=== PATIENT | female | born 1935 | race Caucasian/White ===

== ENCOUNTER 2019-01-24 10:36 | Inpatient (IN) | payer OTHER, BC ==
--- NOTE | 2019-01-24 11:10 | EDPHY ---
HPI/HX/ROS/PE/MDM Narrative: CHIEF COMPLAINT:"My hip hurts like heck" HPI: This patient is an 83 year old female with history of stage IV melanoma. She woke yesterday in the middle of the night with severe right hip pain. This persisted throughout the day and continues this morning. She is unable to walk or perform other usual activities such as putting on socks. She is generally quite active and hikes with her daughter. She denies any recent falls or other injuries. She denies any back discomfort. She describes severe right hip pain which occasionally radiates posteriorly. She has taken Ibuprofen without relief. She endorses history of a small fracture in the right hip after falling off a curb several years ago, but she did not undergo any surgical treatment for this and has felt well. She has no further complaints today. REVIEW OF SYSTEMS: A comprehensive 10 system review of systems is otherwise negative aside from elements mentioned in the history of present illness and medical decision making. PMH: History of melanoma stage IV, last PET scan 3 years ago. Has been taking oral steroids for the past two years. History of bilateral total knee arthroscopy. SOCIAL HISTORY: Daughter at bedside. PHYSICAL EXAM: General:Patient is alert, in no acute distress. ENT:Eyes are normal to inspection. ENT inspection normal. Neck: Normal inspection. Full range of motion. Respiratory:No respiratory distress. Breath sounds normal bilaterally. Cardiovascular: Regular rate and rhythm. Strong peripheral pulses. Normal cap refill. Abdomen:The abdomen is nontender to palpation. There are no peritoneal signs. There are normal bowel sounds. Back: Normal to inspection. No tenderness to palpation. Skin: Normal color. No rash. Warm and dry. Extremities: Right hip/leg: No tenderness. No pain with axial loading or internal or external rotation. She has considerable pain when she attempts to lift her leg herself. Otherwise normal appearance of other extremities with full range of motion. Neuro: Oriented x3. Normal motor function. Normal sensory function. ED Course: 83 y/o female presents with atraumatic right hip pain. The patient has no pain with axial loading or passive internal or external rotation, however she has considerable pain when she attempts to lift her leg herself. Plan for x-ray right hip. Plan to consult with orthopedics. Plan to administer one tab PO Percocet for pain relief. 12:[address] Youssef, flight communications specialist. Patient has an acute impacted right femoral neck fracture. He plans to take her for surgery this evening. Patient just ate potato chips, so we will admit for perioperative management. Patient to be NPO from this point. 12:18 Spoke with hospitalist service. Dr. Cardoso accepts admission for perioperative management of right hip fracture. - Data Points Imaging Results: Imaging Impressions Hip X-Ray 01/24/19 10:51 Impression: 1. There is no acute osseous abnormality identified. 2. Multilevel degenerative change of the lower lumbar spine. If there is further clinical concern regarding the patient's right hip pain, CT or MR imaging could be considered. Imaging: I viewed and interpreted images myself Medications Given: Hydromorphone HCl (Dilaudid) 0.2 - 0.4 mg IVP Q4HRS PRN PRN Reason: Pain, Severe Unable to Take PO Stop: 02/03/19 14:09 Last Admin: 01/24/19 14:45 Dose: 0.2 mg Sodium Chloride (Ns) 1,000 mls @ 100 mls/hr IV CONT LILIANA Stop: 01/26/19 00:14 Last Admin: 01/24/19 14:30 Dose: 1,000 mls Discontinued Medications Oxycodone/Acetaminophen (Percocet 5/325) 1 tab PO EDNOW ONE Stop: 01/24/19 11:17 Last Admin: 01/24/19 11:21 Dose: 1 tab General Time Seen by Provider: 01/24/19 10:46 Initial Vital Signs: Initial Vital Signs Temperature (C) 36.7 C 01/24/19 10:43 Heart Rate 68 01/24/19 10:43 Respiratory Rate 16 01/24/19 10:43 Blood Pressure 143/79 H 01/24/19 10:43 O2 Sat (%) 94 01/24/19 10:43 O2 Delivery Mode Room Air Allergies/Adverse Reactions: Sulfa (Sulfonamide Antibiotics) Allergy (Verified 01/24/19 12:45) Home Medications: Medication Instructions Recorded Dexamethasone [DEXAMETHASONE] 0.5 mg PO Q2D 01/24/19 Lipase 24,000/Amylase/Protease 2 cap PO TIDMEAL 01/24/19 [Creon 24 (*)] Departure - Departure Disposition: [facility] Clinical Impression: Closed right hip fracture Condition: Fair Report Scribed for: Joao Gallegos Report Scribed by: Lesly Willis Date of Report: 01/24/19 Time of Report: 11:09 Physician Review and Approval Statement: Portions of this note were transcribed by an ED scribe. I personally performed the history, physical exam, and medical decision making; and confirm the accuracy of the information in the transcribed note.
[2019-01-24] MEDS ORDERED: OXYCODONE/APAP 5/325 TAB PO ONE (11:16)
[2019-01-24 12:43] LABS: PLATELET COUNT 218 10^3/uL (150-400)
--- NOTE | 2019-01-24 12:58 | GCON ---
[f rep st] CONSULTATION EMERGENCY DEPARTMENT CONSULTATION DATE OF CONSULTATION: 01/24/2019 CHIEF COMPLAINT: Right hip pain. HISTORY OF PRESENT ILLNESS: The patient is an 83-year-old woman who had the onset of hip pain yester day evening. She presents today with persistent pain and discomfort across the right hip with any at tempted weightbearing and range of motion. She denies any falls or severe injury. She has a history of stage IV melanoma. She also has a history of bilateral knee replacement. PAST MEDICAL HISTORY: Arthritis, stage IV melanoma, and oral steroid use. SURGICAL HISTORY: Bilateral knee replacements. MEDICATIONS: Creon and dexamethasone on a daily dosage. ALLERGIES: Sulfa. SOCIAL HISTORY: She is here with her daughter. She lives in [place]. Denies any tobacco or alco hol use. REVIEW OF SYSTEMS: Negative for current chest pain, shortness of breath, belly pain, back pain, numb ness, tingling, or other joint related complaints. OBJECTIVE: This is a healthy woman in no acute distress. CURRENT VITAL SIGNS: Blood pressure is 14 3/79, pulse is 68, respiratory rate is 16, 94% on room air. Temperature is 36.7. HEENT: Normocepha lic, atraumatic. EXTREMITIES: Bilateral upper extremities are unremarkable. Bilateral lower extrem ities reveal well-healed surgical incisions. Neutral in alignment. Her leg lengths are equal. She has pain over the right inguinal area with active flexion of her right hip. With the leg in extensio n, she is tender across the right inguinal crease. No tenderness over the greater trochanter. There is no focal crepitus with internal or external rotation. Sensation is intact to light touch across both lower extremities. RADIOGRAPHS: AP pelvis and lateral demonstrate a valgus impacted femoral neck fracture. There is no lucency or metastatic process evident. She has diffuse lumbar spinal stenosis and degenerative neil ges and osteoporosis. IMPRESSION: Valgus impacted right femoral neck fracture. TREATMENT PLAN: I have recommended surgical stabilization with percutaneous screw placement given th e valgus impaction and minimal leg length discrepancy. I have outlined the surgical procedure, risks , benefits, alternatives, and she wishes to proceed. Appropriate consent will be signed and placed i n the patient's chart. Unfortunately, the patient just ate so she will have an 8 hour delay prior to surgical intervention. She will be admitted to the hospitalist service. /[id number]/MODL
[2019-01-24] MEDS ORDERED: ONDANSETRON 4 MG/2 ML VIAL IVP PRN (14:10)
[2019-01-24] MEDS ORDERED: ACETAMINOPHEN 325 MG TAB PO PRN (14:10)
[2019-01-24] MEDS ORDERED: ONDANSETRON DISINTEGRATING 4 MG TAB PO PRN (14:10)
[2019-01-24] MEDS ORDERED: HYDROmorphONE/DILAUDID 1 MG/ML INJ IVP PRN (14:10)
[2019-01-24] MEDS: NS 1,000 ML IV SCH (14:30)
--- NOTE | 2019-01-24 15:00 | GHP ---
[f rep st] HISTORY AND PHYSICAL DATE OF ADMISSION: 01/24/2019 CHIEF COMPLAINT: Right hip pain. HISTORY OF PRESENT ILLNESS: The patient is an 83-year-old woman with a history of stage IV melanoma cancer and has no other significant history. She presented to the emergency room after having increased right-sided hip pain. Yesterday, she said she felt pain in the hip but was able to ambulate. Then today the pain became significant, and it wrapped around causing severe pain. In regard to her stage IV melanoma cancer, she was treated with Opdivo. She has been cancer-free for the past 2 years. She recently had a PET scan 3 months ago which showed that it was also stable. She is from the [place] area. She is here visiting her daughter who lives in [place]. The patient is on chronic dexamethasone because she sustained adrenal gland issues after getting treated with Opdivo. She has tried to wean herself off it, but gets tired, and has difficulty without it. During my interview, she has no chest pain. No shortness of breath. No changes in her vision. No changes in her appetite. She denies any constipation or any problems with urination. Overall , she is feeling fine except having some pain in the right hip area. PAST MEDICAL HISTORY: 1. Stage IV melanoma cancer in the past. She was treated with Opdivo. She was treated at [facility] in the [facility]. 2. Bilateral knee replacements. 3. History of some sciatica. ALLERGIES: Sulfa causes a rash. HOME MEDICATIONS: Creon 2 caps p.o. three times daily with meals, dexamethasone 0.5 mg every 2 days. SOCIAL HISTORY: She is from [place]. She is . Her 2 years ago from complications of Parkinson's. She has 2 daughters. She does not smoke. She rarely has a drink. She worked as a teacher. FAMILY HISTORY: Her mother of complications from cirrhosis at age 66. Her father of complications of pneumonia and arthritis at age 52. REVIEW OF SYSTEMS: A 10-point review of systems was performed and was negative other than the pertinent positives in the HPI and past medical history. PHYSICAL EXAMINATION: GENERAL: The patient is an 83-year-old woman who appears younger than her stated years. VITAL SIGNS: Blood pressure is 171/100 , heart rate is 65, respiratory rate 16, O2 saturation on room air 93%, temperature is 36.9 Celsius. HEENT: Eyes, pupils are equal and reactive. EOMs are intact. No conjunctival injection noted. ENT, normal ears. Hearing intact. Oral airway is moist. NECK: Trachea is midline. CARDIOVASCULAR: She is in regular rate and rhythm. No murmurs, rubs, or gallops noted. CHEST: Lungs normal respiratory effort. Clear without wheezing, rales, rhonchi. ABDOMEN: Soft, nontender. SKIN: No rashes or ulcers. Warm, dry, intact. She has some light bruised area on her shins. She attributes this to the steroid use. MUSCULOSKELETAL: Her legs are equal in length. No rotation is noted. She has pain over the right inguinal area. Sensation is intact. PSYCHIATRIC: She is alert and oriented. Normal mood, affect. Normal judgment , insight and normal memory. LABORATORY DATA: A CBC was performed which shows a white blood cell count of 8.52, hemoglobin of 13.8, hematocrit of 39.1, platelet of 218. Chemistry shows a sodium of 137, potassium 4, chloride of 107, CO2 24, BUN 11, creatinine 0.5, glucose of 114, calcium 9.4, bilirubin 0.9, AST 19, ALT 30, alkaline phosphatase 74. Hip x-ray shows no acute osseous abnormality identified. It shows multilevel degenerative changes of the lower spine. ASSESSMENT/PLAN: 1. Valgus impacted right femoral neck fracture. She will get stabilization with percutaneous screw placement this evening. She has been seen and evaluated by Dr. Youssef. Will continue n.p.o. status and give her IV hydration. Will check a Vitamin D level. 2. History of stage IV melanoma cancer that was treated with Opdivo. I suspect that she likely fractured her hip being on dexamethasone. Have recommended she talk to her oncologist in the [place] area to see if they can decrease this dosing. 3. Adrenal insufficiency. It will be important that she takes her dexamethasone tomorrow. This is temporarily placed on hold. She takes it every other day. 4. Hypertension. She does not have a history of this. I suspect it is secondary to pain and also anxious for the surgery. Will continue to monitor and see if she needs treatment for this. 5. Deep venous thrombosis prophylaxis. High risk. Will place her on low- molecular weight heparin tomorrow as well as SCDs. 6. Code status. Do not resuscitate. 7. Length of stay: She will require greater than a 2-midnight stay for treatment of her hip fracture. /[id number]/MODL MTDD
[2019-01-24] MEDS: LIPASE 24,000/AMYLASE/PROTEASE (CREON) 1 CAP PO SCH (17:59)
[2019-01-24] MEDS ORDERED: ceFAZolin 2 GM/DEXTROSE 100 ML IV ONE (19:00)
[2019-01-24] MEDS ORDERED: BUPIVACAINE/EPI 0.5% 30 ML SDV ONE (19:38)
[2019-01-24] MEDS ORDERED: POLYMYXIN B SULFATE 500,000 UNIT/10 ML SYR IRR ONE (19:38)
[2019-01-24] MEDS ORDERED: PROPOFOL/EMULSION 500 MG/50 ML BOTTLE IV ONE (19:59)
[2019-01-24] MEDS ORDERED: fentaNYL 100 MCG/2 ML INJ ONE ×2 (20:02→21:28)
--- NOTE | 2019-01-24 20:05 | PDANEPAE ---
ANE History of Present Illness here for hip pinning ANE Past Medical History - Cardiovascular History Hx Hypertension: No Hx Arrhythmias: No Hx Chest Pain: No Hx Coronary Artery / Peripheral Vascular Disease: No Hx CHF / Valvular Disease: No Hx Palpitations: No - Pulmonary History Hx COPD: No Hx Asthma/Reactive Airway Disease: No Hx Recent Upper Respiratory Infection: No Hx Oxygen in Use at Home: No Hx Sleep Apnea: No Sleep Apnea Screening Result - Last Documented: Negative - Endocrine History Hx Diabetes: No Hypothyroid: No Hyperthyroid: No Obesity: no - Renal History Hx Renal Disorders: No - Liver History Hx Hepatic Disorders: No - Cancer History Hx Cancer: Yes Cancer History Comment: history of melanoma - Chronic Pain History Chronic Pain: No ANE Review of Systems Review of systems is: negative Review of Systems: - Exercise capacity Exercise capacity: >=4 METS ANE Patient History - Allergies Allergies/Adverse Reactions: Sulfa (Sulfonamide Antibiotics) Allergy (Verified 01/24/19 12:45) - Home Medications Home medications: home medication list seen and reviewed Home Medications: Dexamethasone [DEXAMETHASONE] 0.5 mg PO Q2D 01/24/19 [Last Taken 01/23/19 09:00] Lipase 24,000/Amylase/Protease [Creon 24 (*)] 2 cap PO TIDMEAL 01/24/19 [Last Taken Unknown] - NPO status NPO Status: no food or drink >8 hours NPO Since - Liquids (Date): 01/24/19 NPO Since - Liquids (Time): 11:00 NPO Since - Solids (Date): 01/24/19 NPO Since - Solids (Time): 11:00 - Anes Hx Anes Hx: no prior problems - Smoking Hx Smoking Status: Never smoked ANE Labs/Vital Signs - Labs Result Diagrams: 01/24/19 12:30 01/24/19 12:30 - Vital Signs Vital Signs: reviewed preoperatively; see RN documention for details Blood Pressure: 151/86 Heart Rate: 71 Respiratory Rate: 16 O2 Sat (%): 93 Height: 154.94 cm Weight: 54.431 kg ANE Physical Exam - Airway Neck exam: FROM Mallampati Score: Class 1 Mouth exam: normal dental/mouth exam - Pulmonary Pulmonary: no respiratory distress - Cardiovascular Cardiovascular: regular rate and rhythym - ASA Status ASA Status: II ANE Anesthesia Plan Anesthesia Plan: GA w LMA
[2019-01-24] MEDS ORDERED: ONDANSETRON 4 MG/2 ML VIAL ONE (20:18)
[2019-01-24] MEDS ORDERED: DEXAMETHASONE 4 MG/ML VIAL ONE (20:18)
[2019-01-24] MEDS ORDERED: NALOXONE HCL 0.4 MG/ML INJ IVP PRN (20:43)
[2019-01-24] MEDS ORDERED: DEXAMETHASONE 4 MG/ML VIAL IVP PRN (20:43)
[2019-01-24] MEDS ORDERED: fentaNYL 100 MCG/2 ML INJ IVP PRN (20:43)
[2019-01-24] MEDS ORDERED: ALBUTEROL 3 ML DEYVIAL IH PRN (20:43)
[2019-01-24] MEDS ORDERED: NS 500 ML IV PRN (20:43)
--- NOTE | 2019-01-24 20:51 | POSTOPPROG ---
Post Op Note Date of Operation: 01/24/19 Surgeon: Francisco Youssef Traveling Phlebotomist: none Anesthesiologist: margot Anesthesia: GET(General Endotracheal) Pre-op Diagnosis: right fem neck fx Post-op Diagnosis: same Indication: same Procedure: crpp right fem neck fx Inf/Abcess present in the surg proc area at time of surgery?: No Depth: Superfical (Skin SQ) EBL: Minimal
--- NOTE | 2019-01-24 20:52 | PDIAF ---
- Diagnosis Diagnosis: right femoral neck fx Code Status: Full Code - Medication Management Discharge Medications: electronically signed and located in the Home Medication List. - Orders Services needed: Physical Therapy Additional Instructions: tdwb rom as hardy keep dressing intact no soaking or immersion f/u at two weeks seek attn for increasing pain, swelling or symptoms - Follow Up Care Current Providers and Referrals: NONE *PRIMARY CARE P,. [Primary Care Provider] - As per Instructions Francisco Youssef MD [Medical Doctor] -
--- NOTE | 2019-01-24 21:06 | POSTANESTH ---
Post Anesthetic Evaluation Cardiovascular Status: Normal, Stable Respiratory Status: Normal, Stable Level of Consciousness/Mental Status: Can Participate in Eval Pain Control: Adequate, Prn Tx Ordered Nausea/Vomiting Control: Adequate, Prn Tx Ordered Complications Possibly Related to Anesthesia: None Noted
[2019-01-25] MEDS: NS 1,000 ML IV SCH (00:58)
[2019-01-25] MEDS: ceFAZolin 2 GM/DEXTROSE 100 ML IV SCH ×3 (03:46→21:09)
[2019-01-25] MEDS: oxyCODONE IR 5 MG TAB PO PRN ×3 (03:49→11:40)
[2019-01-25 05:02] LABS: PLATELET COUNT 211 10^3/uL (150-400)
--- NOTE | 2019-01-25 07:08 | SOAPPROG ---
SOAP Progress Note Assessment/Plan: Assessment: s/p crpp right femoral neck fx Plan: mobilize with pt/ot dvt precautions ice planning on snf 01/25/19 07:03 Subjective: sore with movement no cp or sob hardy po Objective: Vital Signs Temp Pulse Resp BP Pulse Ox 36.7 C 71 18 134/78 H 96 01/25/19 05:00 01/25/19 05:00 01/25/19 05:00 01/25/19 05:00 01/25/19 05:00 Laboratory Results 01/25/19 04:46 01/25/19 04:46 01/24/19 01/25/19 01/26/19 05:59 05:59 05:59 Intake Total 25825 Output Total 700 150 Balance 32020 -150 dressing intact intact pdf,ehl toes warm and pink neg homans sobeida xrays stable alignment no collapse ICD10 Worksheet Patient Problems: Problems Problem Status Onset Closed right hip fracture Acute
[2019-01-25] MEDS: LIPASE 24,000/AMYLASE/PROTEASE (CREON) 1 CAP PO SCH ×3 (07:53→17:40)
[2019-01-25] MEDS: ENOXAPARIN 40 MG/0.4 ML SYR SC SCH (07:55)
[2019-01-25] MEDS: POLYETHYLENE GLYCOL 3350 17 GM PKT PO SCH (09:15)
--- NOTE | 2019-01-25 09:54 | PDMN ---
Medical Necessity Medical necessity: [facility] Musculoskeletal Surgery or Procedure: 83 yo w/ R hip pain, eval reveals hip fx - Valgus impacted R fem neck fx. Ortho consulted. Pt to OR now s/p closed reduction and percutaneous pin fixation. Pt will require>2MN for post op care w/ PT/OT, pain management, IV antibx. Admit IP status. Hx St IV melanoma on chronic steroids.
--- NOTE | 2019-01-25 11:38 | ASMTCMCOM ---
CM Note CM Note Notes: CM spoke with pt in the room. Pt admitted for hip fracture likely related to superintendent terminal steroid use. Pt had hip surgery yesterday. Pt is visiting dtr here in [place] and lives in [place]. Surgeon's note is requesting SNF placement and pt prefers [facility] for short term rehab. Referral sent to [facility] and they will submit auth to out of state PPO. CM to follow. D/C Plan: [facility] pending auth Date Signed: 01/25/2019 10:42 AM Electronically Signed By:Suzi Benson
[2019-01-25] MEDS: DEXAMETHASONE 0.5 MG TAB PO SCH (11:41)
--- NOTE | 2019-01-25 12:04 | HOSPPROG ---
Hospitalist Progress Note Assessment/Plan: 83 yo F w h/o metastatic melanoma here w R hip fracture; pod 1 hip fracture: s/p operative repair c/w fragility fracture no cruz on enox osteopenia: low normal vit d start po replacement dexamethasone dosing is subphysiologic so contribution to this fracture is uncertain needs endocrine/bone metabolism referral in [place] h/o melanoma: s/p immune therapy proph: enox pain: sceduled tylenol, low dose oxycodone dispo: will likely needs snf Subjective: case d/w dr parks. pain well controlled. hasnt been out of bed yet Objective: Vital Signs Temp Pulse Resp BP Pulse Ox 36.8 C 79 18 148/81 H 93 01/25/19 11:04 01/25/19 11:04 01/25/19 11:04 01/25/19 11:04 01/25/19 11:04 Laboratory Results 01/25/19 04:46 01/25/19 04:46 01/24/19 01/25/19 01/26/19 05:59 05:59 05:59 Intake Total 97767 Output Total 700 700 Balance 14973 -700 - Physical Exam Constitutional: no apparent distress, appears nourished Eyes: PERRL, anicteric sclera Ears, Nose, Mouth, Throat: moist mucous membranes, hearing normal Cardiovascular: regular rate and rhythym, no murmur, rub, or gallop Respiratory: no respiratory distress, no rales or rhonchi Gastrointestinal: normoactive bowel sounds, soft, non-tender abdomen Genitourinary: no bladder fullness, No cruz in urethra Skin: warm, normal color Musculoskeletal: No full muscle strength Neurologic: AAOx3 ICD10 Worksheet Patient Problems: Problems Problem Status Onset Closed right hip fracture Acute
[2019-01-25] MEDS: ACETAMINOPHEN 500 MG TAB PO SCH ×2 (14:29→21:08)
[2019-01-25] MEDS: CHOLECALCIFEROL VIT D3 2,000 UNITS TAB/CAP PO SCH (14:29)
--- NOTE | 2019-01-25 15:54 | ASMTCMCOM ---
CM Note CM Note Notes: ADDENDUM: Pt does not need insurance auth. Pt accepted by [facility] under Medicare Part A. Therapy evals still pending. Date Signed: 01/25/2019 02:58 PM Electronically Signed By:Suzi Benson
[2019-01-26] MEDS ORDERED: KETOROLAC 15 MG/1 ML SDV IVP ONE (02:31)
[2019-01-26] MEDS: ACETAMINOPHEN 500 MG TAB PO SCH ×3 (06:03→21:41)
--- NOTE | 2019-01-26 07:40 | SOAPPROG ---
SOAP Progress Note Assessment/Plan: Assessment: s/p crpp right femoral neck fx Plan: mobilize with pt/ot dvt precautions ice planning on snf TOMORROW pain medication to improve mobiliity 01/25/19 07:03 01/26/19 07:39 Subjective: no pain when not moving no cp or sob hardy po Objective: Vital Signs Temp Pulse Resp BP Pulse Ox 37.2 C 70 18 158/90 H 91 L 01/26/19 07:25 01/26/19 07:25 01/26/19 07:25 01/26/19 07:25 01/26/19 07:25 Laboratory Results 01/25/19 04:46 01/25/19 04:46 01/25/19 01/26/19 01/27/19 05:59 05:59 05:59 Intake Total 70028 2510 Output Total 700 2050 Balance 60582 460 dressing intact intact pf,df,ehl toes warm and pink neg homans sobeida ICD10 Worksheet Patient Problems: Problems Problem Status Onset Closed right hip fracture Acute
[2019-01-26] MEDS: LIPASE 24,000/AMYLASE/PROTEASE (CREON) 1 CAP PO SCH ×3 (08:31→18:23)
[2019-01-26] MEDS: CHOLECALCIFEROL VIT D3 2,000 UNITS TAB/CAP PO SCH (08:32)
[2019-01-26] MEDS: ENOXAPARIN 40 MG/0.4 ML SYR SC SCH (08:32)
[2019-01-26] MEDS: POLYETHYLENE GLYCOL 3350 17 GM PKT PO SCH (08:33)
[2019-01-26] MEDS: traMADol 50 MG TAB PO PRN ×2 (11:47→21:44)
[2019-01-26] MEDS ORDERED: POLYETHYLENE GLYCOL 3350 17 GM PKT PO ONE (15:26)
--- NOTE | 2019-01-26 15:30 | HOSPPROG ---
Hospitalist Progress Note Assessment/Plan: 83 yo F w h/o metastatic melanoma here w R hip fracture; pod 2 hip fracture: s/p operative repair c/w fragility fracture no cruz on enox osteopenia: low normal vit d start po replacement dexamethasone dosing is subphysiologic so contribution to this fracture is uncertain needs endocrine/bone metabolism referral in [place] d/w patient and daughter h/o melanoma: s/p immune therapy low mechanism of fracture raises concern for melanoma i discussed this with patient and she has oncology follow up upon return proph: enox pain: sceduled tylenol, low dose oxycodone dispo: will likely needs snf Subjective: case d/w dr parks. has not moved bowels. pain well controlled when at rest Objective: Vital Signs Temp Pulse Resp BP Pulse Ox 37.2 C 70 18 158/90 H 91 L 01/26/19 07:25 01/26/19 07:25 01/26/19 07:25 01/26/19 07:25 01/26/19 07:25 Laboratory Results 01/25/19 04:46 01/25/19 04:46 01/25/19 01/26/19 01/27/19 05:59 05:59 05:59 Intake Total 13172 2510 Output Total 700 2050 Balance 03902 460 - Physical Exam Constitutional: no apparent distress, appears nourished Eyes: PERRL, anicteric sclera Ears, Nose, Mouth, Throat: moist mucous membranes, hearing normal Cardiovascular: regular rate and rhythym, no murmur, rub, or gallop Respiratory: no respiratory distress, no rales or rhonchi Gastrointestinal: normoactive bowel sounds, soft, non-tender abdomen Genitourinary: no bladder fullness, No cruz in urethra Skin: warm, normal color Musculoskeletal: full muscle strength Neurologic: AAOx3 ICD10 Worksheet Patient Problems: Problems Problem Status Onset Closed right hip fracture Acute
[2019-01-27] MEDS: ACETAMINOPHEN 500 MG TAB PO SCH (05:47)
--- NOTE | 2019-01-27 06:44 | SOAPPROG ---
SOAP Progress Note Assessment/Plan: Assessment: s/p crpp right femoral neck fx Plan: mobilize with pt/ot dvt precautions ice pain medication ultram has improved mobiliity to snf today 01/25/19 07:03 01/26/19 07:39 01/27/19 06:43 Subjective: better pain control no cp or sob hardy po Objective: Vital Signs Temp Pulse Resp BP Pulse Ox 37.1 C 78 15 148/81 H 95 01/27/19 00:00 01/27/19 00:00 01/27/19 00:00 01/27/19 00:00 01/27/19 00:00 Laboratory Results 01/25/19 04:46 01/25/19 04:46 01/26/19 01/27/19 01/28/19 05:59 05:59 05:59 Intake Total 2510 1300 Output Total 0 Balance 460 1300 dressing ichanged jena in place no erythema or drainage intact pdf, ehl toes warm and pink neg homans sobeida ICD10 Worksheet Patient Problems: Problems Problem Status Onset Closed right hip fracture Acute
[2019-01-27 07:42] VITALS: BP 167/95
[2019-01-27] MEDS: CHOLECALCIFEROL VIT D3 2,000 UNITS TAB/CAP PO SCH (07:48)
[2019-01-27] MEDS: POLYETHYLENE GLYCOL 3350 17 GM PKT PO SCH (07:50)
[2019-01-27] MEDS: ENOXAPARIN 40 MG/0.4 ML SYR SC SCH (07:50)
[2019-01-27] MEDS: LIPASE 24,000/AMYLASE/PROTEASE (CREON) 1 CAP PO SCH (07:51)
[2019-01-27] MEDS ORDERED: BISACODYL 10 MG SUPP PR ONE (07:53)
[2019-01-27] MEDS: DEXAMETHASONE 0.5 MG TAB PO SCH (07:57)
--- NOTE | 2019-01-27 09:15 | PDIAF ---
- Diagnosis Diagnosis: right femoral neck fx Code Status: Full Code - Medication Management Discharge Medications: electronically signed and located in the Home Medication List. - Orders Services needed: Registered Nurse, Certified Hedge Fund Accountant, Physical Therapy, Occupational Therapy Additional Instructions: tdwb rom as hardy keep dressing intact no soaking or immersion f/u at two weeks seek attn for increasing pain, swelling or symptoms - Follow Up Care Current Providers and Referrals: NONE *PRIMARY CARE P,. [Primary Care Provider] - As per Instructions Francisco Youssef MD [Medical Doctor] -
--- NOTE | 2019-01-27 09:29 | GDS ---
[f rep st] DISCHARGE SUMMARY DISCHARGE DIAGNOSES: 1. History of melanoma, status post immunotherapy with apparent cure. 2. Bilateral knee replacements. 3. Iatrogenic adrenal insufficiency secondary to Opdivo therapy. 4. History of sciatica. Please see admission history and physical by JANE Vieira. She hip pain that actua lly occurred while lying in bed. She had a PET scan a couple of months ago showing no evidence of ca ncer. She underwent hip fracture repair with pinning. There was no pathology. She did well postoperativel y without complications and no evidence of adrenal crisis. She had a low-normal vitamin D and was st arted on some vitamin D replacement while here. She warrants referral to a bone and metabolism and e ndocrinology clinic as well as oncology followup. There is a degree of concern this represents recurrent melanoma. I wrote a letter to her oncologist in [place] with my phone number explaining the case, for further evaluation. She is discharged to local SNF. /[id number]/MODL
--- NOTE | 2019-01-27 09:40 | ASMTLACE ---
CYNTHIA Length of stay for Answers: 3 days current admission Acuity / Level of Answers: Yes Care: Did the patient have an inpatient admission? # of Emergency department Answers: 1-2 visits in the last 6 months Score: 7 Date Signed: 01/27/2019 09:40 AM Electronically Signed By:Alea Almazan
--- NOTE | 2019-01-27 10:03 | ASMTCMCOM ---
CM Note CM Note Notes: Pt and family aware Pt is d/c and [facility] will pick her up at 1030. RN to call report. Spoke with [facility] Miguel and update have been (PT/OT notes) with Passr. PLAN: Discharge to [facility] at 1030. Date Signed: 01/27/2019 10:03 AM Electronically Signed By:Alea Almazan
--- NOTE | 2019-01-28 14:45 | ASDISCHSUM ---
Discharge Information Plan Status:SNF Medically Cleared to Leave: Discharge Date:01/27/2019 10:35 AM CM D/C Disposition: ADT D/C Disposition:Long Term Facility Projected Discharge Date:01/27/2019 11:00 AM Transportation at D/C: Discharge Delay Reason: Follow-Up Date:01/27/2019 11:00 AM Discharge Slot: Final Diagnosis:hip fracture Placement Information Referral Type:*Group Home/SNF Referral ID:[id number] Provider Name:[facility] Address 1:[address] Address 2: City:[place] Selection Factors: State:[place] Patient Contact Information Contact Name:WYATT Relationship:Daughter Address:[address] Work Phone: [facility] Alternate Phone: State/Zip Code:[place] [address] Email: Financial Information Financial Class:Medicare Primary Plan Desc:MEDICARE INPATIENT Primary Plan Number:[id number] Secondary Plan Desc: OUT [facility] Secondary Plan Number:[id number] Assessment Information [facility] Progress Note CM Note CM Note Notes: CM spoke with pt in the room. Pt admitted for hip fracture likely related to longterm steroid use. Pt had hip surgery yesterday. Pt is visiting dtr here in [place] and lives in [place]. Surgeon's note is requesting SNF placement and pt prefers [facility] for short term rehab. Referral sent to [facility] and they will submit auth to out [facility]. CM to follow. D/C Plan: [facility] pending auth Date Signed: 01/25/2019 10:42 AM Electronically Signed By:Suzi Benson LACE CYNTHIA Length of stay for Answers: 3 days current admission Acuity / Level of Answers: Yes Care: Did the patient have an inpatient admission? # of Emergency department Answers: 1-2 visits in the last 6 months Score: 7 Date Signed: 01/27/2019 09:40 AM Electronically Signed By:Alea Almazan [facility] CM Progress Note CM Note CM Note Notes: ADDENDUM: Pt does not need insurance auth. Pt accepted by [facility] under Medicare Part A. Therapy evals still pending. Date Signed: 01/25/2019 02:58 PM Electronically Signed By:Suzi Benson [facility] CM Progress Note CM Note CM Note Notes: Pt and family aware Pt is d/c and [facility] will pick her up at 1030. RN to call report. Spoke with [facility] Miguel and camilo have been (PT/OT notes) with Pass[facility]. PLAN: Discharge to [facility] at 1030. Date Signed: 01/27/2019 10:03 AM Electronically Signed By:Alea Almazan Intervention Information Intervention Type:*Incorrect Registration Date of Service:01/24/2019 02:58 PM Patient Type:Observation Staff Member:Lay Will Hours: Discipline: Severity: Comment: Intervention Type:*IM-Signed Date of Service:01/26/2019 10:32 AM Patient Type:Inpatient Staff Member:Mildred Markham Hours: Discipline: Severity: Comment: Intervention Type:*IM-Signed Date of Service:01/27/2019 10:53 AM Patient Type:Inpatient Staff Member:Judie Brand Hours: Discipline: Severity: Comment:
--- NOTE | 2019-01-31 07:14 | GOP ---
[f rep st] OPERATIVE REPORT DATE OF OPERATION: 01/24/2019 SURGEON: Francisco Youssef MD CODING FILE CLERK: None. PREOPERATIVE DIAGNOSIS: Right valgus impacted femoral neck fracture. POSTOPERATIVE DIAGNOSIS: Right valgus impacted femoral neck fracture. PROCEDURE PERFORMED: Closed reduction, percutaneous screw placement, right femoral neck fracture. FINDINGS: SPECIMENS: To Pathology, none. DESCRIPTION OF PROCEDURE: The patient was identified in the preanesthesia area. The right hip clear ly demarcated as the operative site with indelible marker. She was given 2 g of Ancef intravenously en route to the operative suite. In the OR, general endotracheal anesthesia was administered. She w as positioned on the fracture table. All bony prominences were well padded. The traction boot was u sed to position the hip perpendicular to the floor. No additional reduction was carried out. The hi p and lower extremity were sterilely prepped and draped with a shower curtain drape. Appropriate miguel e-out procedure was carried out. A small 1 inch incision was made across the lateral aspect of the h ip. This was dissected directly to the greater trochanter. Three pins were then placed in a triangu lar orientation with an inferior middle pin superior-posterior and superior-anterior pins, and these were then confirmed under AP and lateral views. They were over-reamed with a drill and sequentially, 3 screws were then placed, 7.3 mm screws were placed under compression. Excellent stability was ach ieved. Guidepins were removed. The wound was irrigated and closed in layers using 2-0 Monocryl and jena. The margins were instilled with 20 cc of 0.5% Marcaine with epinephrine. Sterile bandage w as applied. The patient was awakened and taken to the recovery room in good, stable condition. OPERATIVE INDICATIONS: The patient is an 83-year-old woman who presented to the emergency room with a 2-day history of increasing pain, inability to ambulate, and discomfort across her right groin and hip. Examination at that time was consistent with a femoral neck fracture. This was confirmed with an x-ray image across her hip. This was a valgus impacted. I therefore recommended percutaneous scr ew stabilization. She understood the risks, benefits, and alternatives, and wished to proceed. Writ ten consent was signed and placed in patient's chart. TOURNIQUET TIME: None. COMPLICATIONS: None. /[id number]/MODL
== END 2019-01-27 10:35 | DRG 481 ==
LOC: OBSVTOIN 12:25 → F3N 13:25
PROVIDERS: ADMIT Internal Medicine; ATTEND Internal Medicine
PROC: 0QS604Z Reposition Right Upper Femur with Internal Fixation Device, Open Approach (ICD-10-PCS; principal; 2019-01-24 20:00)
DX: M84.451A Pathological fracture, right femur, initial encounter for fracture (principal); E27.40 Unspecified adrenocortical insufficiency; M85.80 Other specified disorders of bone density and structure, unspecified site; Z79.52 Long term (current) use of systemic steroids; Z85.820 Personal history of malignant melanoma of skin; Z92.25 Personal history of immunosuppression therapy; Z96.653 Presence of artificial knee joint, bilateral; Z66 Do not resuscitate
CPT/HCPCS: 97116-GP; 97161-GP; 97165-GO; 97530-GP; C1713; C1769; J0690; J1100; J1170; J1650; J1885; J2405; J2704; J3010